=== PATIENT | female | born 1995 | race Caucasian/White ===

== ENCOUNTER 2018-09-03 10:57 | Emergency (ER) | payer OTHER, SELFPAY ==
[2018-09-03] MEDS ORDERED: Ketorolac Tromethamine 60 MG/2 ML VIAL ONE (12:01)
[2018-09-03] MEDS ORDERED: Bicillin LA 1.2 MILLION UNITS/2 ML SYRINGE ONE (12:01)
[2018-09-03] MEDS ORDERED: cefTRIAXone\\ROCEPHIN 250 MG VIAL ONE (12:01)
== END 2018-09-03 12:47 | disposition home or self-care (01) ==
LOC: MADERS 10:57
DX: J02.9 Acute pharyngitis, unspecified (principal); F17.210 Nicotine dependence, cigarettes, uncomplicated
CPT/HCPCS: 87081; 87430; 96372; J0561; J0696; J1885